=== PATIENT | female | born 1995 | race Hispanic/Latino ===

== ENCOUNTER 2024-04-01 18:35 | Emergency (ER) | payer SELFPAY ==
[~2024-04-01] VITALS: Ht 157.5 cm; Wt 83.9 kg
[2024-04-01 18:42] VITALS: PULSE 95; RESP 18; TEMP 97.9
[2024-04-01] MEDS: SODIUM CHLORIDE 0.9% 1000ML 1,000 ML IV STA (18:56)
[2024-04-01 19:31] LABS: BASOPHILS % 0.5 % (0.0-1.0); EOSINOPHILS # (AUTO) 0.1 (0.0-0.4); EOSINOPHILS % 0.6 % (0.0-6.0); HEMATOCRIT 40.4 % (34.2-44.1); HEMOGLOBIN 13.2 g/dL (12.0-16.0); LYMPHOCYTES # (AUTO) 2.7 (1.0-3.2); MEAN CORPUSCULAR HEMOGLOBIN 29.7 pg (28-32); MEAN CORPUSCULAR HGB CONC 32.7 g/dL (31-35); MEAN CORPUSCULAR VOLUME 90.8 fL (81-99); MONOCYTES # (AUTO) 0.5 (0.2-0.8); MONOCYTES % 6.9 % (4.4-11.3); NEUTROPHILS # (AUTO) 4.5 (2.1-6.9); NEUTROPHILS % 57.7 % (38.7-80.0); PLATELET COUNT 267 x10e3/uL (140-360); RED BLOOD COUNT 4.45 x10e6/uL (3.6-5.1); RED CELL DISTRIBUTION WIDTH 14.3 % (11.7-14.4); WHITE BLOOD COUNT 7.85 x10e3/uL (4.8-10.8)
[2024-04-01 20:12] LABS: AMPHETAMINES SCREEN,URINE NEGATIVE (NEGATIVE); OPIATES SCREEN,URINE NEGATIVE (NEGATIVE); PHENCYCLIDINE SCREEN,URINE NEGATIVE (NEGATIVE)
[2024-04-01 20:12] LABS: ALANINE AMINOTRANSFERASE 63 IU/L (0-55); ALBUMIN 3.9 g/dL (3.5-5.0); ALBUMIN/GLOBULIN RATIO 0.9 (0.8-2.0); ALKALINE PHOSPHATASE 90 IU/L (40-150); ANION GAP 13.4 mmol/L (8-16); BILIRUBIN,TOTAL 0.4 mg/dL (0.2-1.2); BLOOD UREA NITROGEN 10 mg/dL (7-26); BUN/CREATININE RATIO 13 (6-25); CARBON DIOXIDE 24 mmol/L (22-29); CHLORIDE 106 mmol/L (98-107); CREATINE KINASE 65 IU/L (29-168); CREATININE, SERUM 0.77 mg/dL (0.57-1.11); EST GLOMERULAR FILTRATION RATE 108 ML/MIN (>=60); GLUCOSE 96 mg/dL (74-118); SODIUM 140 mmol/L (136-145); TOTAL PROTEIN 8.2 g/dL (6.5-8.1)
[2024-04-01 20:13] LABS: BENZODIAZEPINES SCREEN,URINE NEGATIVE (NEGATIVE); CANNABINOIDS SCREEN,URINE NEGATIVE (NEGATIVE); METHADONE SCREEN, URINE NEGATIVE (NEGATIVE); PREGNANCY TEST, URINE NEGATIVE (NEGATIVE)
[2024-04-01 20:13] LABS: POTASSIUM 3.4 mmol/L (3.5-5.1)
[2024-04-01 20:19] LABS: TROPONIN I < 0.001 ng/mL (0-0.300)
[2024-04-01 20:55] VITALS: BP 129/89; PULSE 89; RESP 18; O2SAT 100
== END 2024-04-01 20:56 | disposition home or self-care (01) ==
LOC: ER 18:48
DX: R42 Dizziness and giddiness (principal); R11.2 Nausea with vomiting, unspecified
CPT/HCPCS: 36415; 70450; 71045; 80053; 80307; 81025; 82550; 83690; 83880; 84484; 85025; 93005; 99284; J7030

== ENCOUNTER 2025-04-04 13:13 | Emergency (ER) | payer OTHER ==
[~2025-04-04] VITALS: Ht 152.4 cm; Wt 86.2 kg
[2025-04-04 14:49] LABS: BASOPHILS % 0.7 % (0.0-1.0); EOSINOPHILS % 0.9 % (0.0-6.0); LYMPHOCYTES % 31.0 % (18.0-39.1); MONOCYTES % 7.0 % (4.4-11.3); NEUTROPHILS % 60.0 % (38.7-80.0); RED CELL DISTRIBUTION WIDTH 12.8 % (11.7-14.4)
[2025-04-04 14:52] LABS: LEUKOCYTE ESTERASE ,URINE NEGATIVE (NEGATIVE); PROTEIN,URINE DIPSTICK NEGATIVE (NEGATIVE); URINE UROBILINOGEN 0.2 mg/dL (0.2 - 1)
[2025-04-04 14:53] LABS: INR 1.02
[2025-04-04 15:02] LABS: EST GLOMERULAR FILTRATION RATE 127 ML/MIN (>=60)
[2025-04-04 15:12] LABS: EPITHELIAL CELLS,URINE MODERATE /LPF
[2025-04-04] MEDS: ONDANSETRON HCL INJ 2MG/ML 2ML 2 MG/ML VIAL IV STA (15:14)
[2025-04-04] MEDS: KETOROLAC TROMETHAMINE 30 MG/ML VIAL IV STA (15:14)
[2025-04-04] MEDS: SODIUM CHLORIDE 0.9% 1000ML 1,000 ML IV STA (15:14)
[2025-04-04] MEDS ORDERED: ASPIRIN 81 MG CHEW TAB PO ONE (16:00)
[2025-04-04] MEDS ORDERED: ONDANSETRON ODT4 MG PO (16:52)
[2025-04-04 17:00] VITALS: PULSE 81; RESP 16; TEMP 98.2; O2SAT 100
== END 2025-04-04 17:10 | disposition home or self-care (01) ==
LOC: ER 14:39
DX: R11.2 Nausea with vomiting, unspecified (principal); R42 Dizziness and giddiness; R55 Syncope and collapse; W07.XXXA Fall from chair, initial encounter; Y92.89 Other specified places as the place of occurrence of the external cause; D64.9 Anemia, unspecified
CPT/HCPCS: 36415; 70450; 71045; 72125; 80053; 81001; 83735; 84484; 84702; 85025; 85610; 85730; 87086; 93005; 99284; J1885; J2405; J2470; J7030